=== PATIENT | male | born 1975 | race Asian ===

== ENCOUNTER 2016-11-10 17:19 | Emergency (ER) | payer OTHER ==
[~2016-11-10] VITALS: Ht 167.6 cm; Wt 88.6 kg
[2016-11-10 19:15] VITALS: BP 163/140
== END 2016-11-10 19:22 | disposition home or self-care (01) ==
LOC: EMS 17:21
DX: T15.82XA Foreign body in other and multiple parts of external eye, left eye, initial encounter (principal); I10 Essential (primary) hypertension; X58.XXXA Exposure to other specified factors, initial encounter; Y93.89 Activity, other specified; Y92.89 Other specified places as the place of occurrence of the external cause; Y99.8 Other external cause status
CPT/HCPCS: 99283